=== PATIENT | male | born 1995 | race Caucasian/White ===

== ENCOUNTER → 2018-12-11 | Outpatient (REF) | payer OTHER ==
[2018-12-11 16:39] LABS: HEMOGLOBIN 16.5 g/dl (13.5-17.5); MEAN CORPUSCULAR HEMOGLOBIN 30.6 pg (27.0-33.0); MEAN CORPUSCULAR HGB CONC 35.9 g/dl (32.0-36.5); MEAN CORPUSCULAR VOLUME 85.3 fl (80.0-96.0); PLATELET COUNT, AUTOMATED 359 10^3/uL (150-450); RED BLOOD COUNT 5.39 10^6/uL (4.30-6.10); WHITE BLOOD COUNT 8.6 10^3/uL (4.0-10.0)
[2018-12-11 16:51] LABS: ALBUMIN 4.1 GM/DL (3.2-5.2); ALT/SGPT 20 U/L (12-78); BILIRUBIN,TOTAL 0.6 MG/DL (0.2-1.0); BLOOD UREA NITROGEN 15 MG/DL (7-18); CALCIUM LEVEL 8.9 MG/DL (8.5-10.1); CARBON DIOXIDE LEVEL 27 MEQ/L (21-32); CHLORIDE LEVEL 105 MEQ/L (98-107); CHOLESTEROL LEVEL 134 MG/DL (<200); CREATININE FOR GFR 0.86 MG/DL (0.70-1.30); GLOMERULAR FILTRATION RATE > 60.0 (>60); GLUCOSE, FASTING 79 MG/DL (70-100); HDL CHOLESTEROL 50 MG/DL (>40); LDL CHOLESTEROL 72 MG/DL (<100); NON-HDL-C 84 MG/DL; POTASSIUM SERUM 4.1 MEQ/L (3.5-5.1); SODIUM LEVEL 141 MEQ/L (136-145); TOTAL PROTEIN 8.1 GM/DL (6.4-8.2); TRIGLYCERIDES LEVEL 62 MG/DL (<150)
== END ==
LOC: M SFHCCLAY 11:07
PROVIDERS: ATTEND Nurse Practitioner Family
DX: J45.909 Unspecified asthma, uncomplicated (principal); F41.9 Anxiety disorder, unspecified; Z13.6 Encounter for screening for cardiovascular disorders; Z13.21 Encounter for screening for nutritional disorder

== ENCOUNTER → 2019-03-04 | Outpatient (REF) | payer OTHER ==
[2019-03-04 17:11] LABS: FREE THYROXINE INDEX 3.1 % (1.4-3.8); THYROID STIMULATING HORMONE 4.35 uIU/ML (0.358-3.740); THYROXINE (T4) 9.9 UG/DL (4.5-12.0); TOTAL 25(OH) VITAMIN D 15.8 NG/ML (30.0-100.0)
== END ==
LOC: M SFHCCLAY 11:04
PROVIDERS: ATTEND Nurse Practitioner Family
DX: R79.89 Other specified abnormal findings of blood chemistry (principal); E55.9 Vitamin D deficiency, unspecified

== ENCOUNTER → 2019-09-17 | Outpatient (REF) | payer OTHER ==
[2019-09-17 16:40] LABS: THYROID STIMULATING HORMONE 4.28 uIU/ML (0.358-3.740); TOTAL 25(OH) VITAMIN D 21.7 NG/ML (30.0-100.0)
== END ==
LOC: M SFHCCLAY 12:32
PROVIDERS: ATTEND Nurse Practitioner Family
DX: E03.9 Hypothyroidism, unspecified (principal); E55.9 Vitamin D deficiency, unspecified

== ENCOUNTER 2020-11-10 13:24 | Inpatient (IN) | payer OTHER ==
[~2020-11-10] VITALS: Ht 177.8 cm; Wt 112.2 kg
[2020-11-10] MEDS ORDERED: AZIT-12 PO (13:42)
[2020-11-10] MEDS ORDERED: VENTAER INH (13:42)
[2020-11-10] MEDS ORDERED: COMBIVENT RESPIMAT 100-20MCG INHALER 4GM INH ONE (14:00)
[2020-11-10] MEDS ORDERED: methylPREDNISolone 125MG 2ML VIAL IV ONE (14:00)
--- NOTE | 2020-11-10 14:29 | REP ---
INDICATION: DYSPNEA/COUGH. COMPARISON: None. TECHNIQUE: Single AP view of the chest performed portably with the patient upright. FINDINGS: There are patchy bibasilar infiltrates, worse on the left. No pleural effusions. Cardiac size is normal. The dena, mediastinum, and skeletal structures are unremarkable. IMPRESSION: Patchy bibasilar infiltrates, worse on the left. <Electronically signed by Asad Reyes > 11/10/20 [id number]
[2020-11-10 15:03] VITALS: O2SAT 94
[2020-11-10 15:12] LABS: HEMATOCRIT 48.8 % (42.0-52.0); HEMOGLOBIN 16.4 g/dl (13.5-17.5); MEAN CORPUSCULAR HEMOGLOBIN 28.9 pg (27.0-33.0); MEAN CORPUSCULAR HGB CONC 33.6 g/dl (32.0-36.5); MEAN CORPUSCULAR VOLUME 86.1 fl (80.0-96.0); PLATELET COUNT, AUTOMATED 383 10^3/uL (150-450); RED BLOOD COUNT 5.67 10^6/uL (4.30-6.10)
[2020-11-10 15:26] LABS: INR 1.15
[2020-11-10 15:27] LABS: D-DIMER QUANT 3025.53 ng/ml (<500)
[2020-11-10 15:38] LABS: ALBUMIN 3.7 GM/DL (3.2-5.2); ALT/SGPT 48 U/L (12-78); BILIRUBIN,DIRECT 0.4 MG/DL (0.0-0.2); BLOOD UREA NITROGEN 15 MG/DL (7-18); CALCIUM LEVEL 9.2 MG/DL (8.5-10.1); CARBON DIOXIDE LEVEL 26 MEQ/L (21-32); CHLORIDE LEVEL 106 MEQ/L (98-107); CK-MB VALUE MASS < 1.0 NG/ML (<3.6); CPK CREATINE PHOSPHOKINASE 741 U/L (39-308); CREATININE FOR GFR 0.91 MG/DL (0.70-1.30); GLOMERULAR FILTRATION RATE > 60.0 (>60); GLUCOSE, FASTING 94 MG/DL (70-100); MB/CK RELATIVE INDEX 0.13 (< OR =4); NT-PRO BNP 8 PG/ML (<125); POTASSIUM SERUM 4.3 MEQ/L (3.5-5.1); SODIUM LEVEL 139 MEQ/L (136-145); TOTAL PROTEIN 8.4 GM/DL (6.4-8.2); TROPONIN I < 0.02 NG/ML (< 0.10)
[2020-11-10] MEDS ORDERED: ISOVUE-370 76% 100ML VIAL As Ordered ONE (15:55)
[2020-11-10 16:13] LABS: MONOCYTES 6 % (0-5)
[2020-11-10 16:15] LABS: NEUTROPHILS 72 % (28-66)
[2020-11-10 16:17] LABS: ATYPICAL LYMPH 5 % (0-5); LYMPHOCYTES 11 % (16-44)
[2020-11-10 16:18] LABS: PLATELET ESTIMATE NORMAL (NORMAL)
[2020-11-10 16:24] LABS: RSV AMPLIFICATION NEGATIVE (NEGATIVE)
--- NOTE | 2020-11-10 17:05 | REP ---
INDICATION: SOB, chest pain. COMPARISON: Comparison is made with today's chest x-ray.. TECHNIQUE: Contrast dose: 75 ML of Isovue [address] technique: Helical scanning is acquired and overlapping 1.5 mm and contiguous 3 mm axial images are reformatted. In addition, maximum intensity projection and multiplanar re-formation images are generated in sagittal and coronal imaging projections. FINDINGS: There is good opacification in the pulmonary arterial tree. There is no evidence of vessel cut off or filling defect to suggest pulmonary embolus. Homogeneous opacity is seen in the thoracic aorta. There is no evidence of aneurysm or dissection. Lung window settings demonstrate demonstrate multifocal predominantly peripheral pattern of patchy airspace consolidation bilaterally. This is worse in the left lower lobe and left upper lobe but also present in the right middle lobe lower lobe and upper lobe. Commonly reported imaging features of COVID 19 pneumonia are present. Other processes such as influenza pneumonia, drug toxicity, and connective tissue disease can produce a similar pattern. In the upper abdomen, normal adrenal glands are observed. The visualized upper abdominal structures are unremarkable. IMPRESSION: Patchy bilateral peripheral airspace consolidation suggestive of viral pneumonia. Commonly reported imaging features of COVID-19 pneumonia are present. There is no CT evidence of pulmonary embolus.. <Electronically signed by Trung Rubio > 11/10/20 [id number]
[2020-11-10] MEDS ORDERED: IPRATROPIUM 0.5MG/ALBUTEROL 2.5MG INH SOL UD 3ML (DUONEB) NEB ONE (17:30)
[2020-11-10] MEDS ORDERED: LevoFLOXacin IV 750 MG in IV 1 EA IV ONE (17:30)
[2020-11-10] MEDS ORDERED: ALBUTEROL SULFATE 2.5 MG/0.5 ML INH NEB SOLN NEB PRN (17:45)
--- NOTE | 2020-11-10 19:18 | HPEPDOC ---
General Date of Admission Nov 10, 2020 at 17:31 Date of Service: Nov 10, 2020 Chief Complaint The patient is a 25-year-old male admitted with a reason for visit of Pneumonia. Source: Patient History of Present Illness Mr. Almanza is a 25 year old male with asthma here with worsening dyspnea and asthma. For the holidays, he has been staying with a roommate. On 10/31/2020 (ay), he and his roommate has not been feeling well. His roommate and himself were both tested on 11/01/2020. His roommate was positive and he was negative. He self quarantine. As the week progressed, he became more symptomatic with dyspnea. He went to the ER at [facility] on Sunday (11/05/2020) and was tested negative, but imaging demonstrated pneumonia. He was given Azithromycin and was self quarantined again. Today, he would finish his azithromycin. He tried to walk to the bathroom, but felt too weak and collapsed to the ground. He called EMS and was brought here. He was tested again for COVID and influenza and both tests are negative again. CTA was negative for PE but demonstrated patchy bilateral peripheral airspace consolidation suggestive of viral pneumonia. He was too dyspneic with activity and ED called for admission. Patient denied any fever, but has dyspnea worse with sitting up and better when lying down. Dyspnea also worse with activity. He has a sharp chest pain with activity as well. He had an episode of diarrhea today, but not watery. Home Medications Scheduled Azithromycin (Azithromycin) 250 Mg Tablet, 250 MG PO DAILY, (Reported) FOR 5 DAYS Scheduled PRN Albuterol Sulfate (Ventolin Hfa) 18 Gm Hfa.aer.ad, 2 PUFFS INH QID PRN for SOB/WHEEZING, (Reported) Allergies Coded Allergies: No Known Allergies (Unverified , 11/10/20) Past Medical History Medical History 1. Asthma Surgical History Denies any surgical history Family History Denies any known past medical history in parents Social History * Smoker: former Smoker (Quit 10 years ago, smoked for 3 months) Alcohol: Denies Drugs: denies Recent Travel/Sick Contacts: Reports: Recent sick contacts (Roommate who is COVID positive. Patient tested COVID negative x2) A-FIB/CHADSVASC A-FIB History Current/History of A-Fib/PAF?: No Review of Systems Constitutional: Denies: Chills, Fever Eyes: Denies: Vision change ENT: Denies: Sore Throat Skin: Reports: Rash (Intermittent on hands) Pulmonary: Reports: Dyspnea (Worse with activity and sitting up), Cough (Dry) Cardiovascular: Reports: Chest Pain (Sharp, worse with activity) Gastrointestinal: Reports: Diarrhea (Not watery, started today); Denies: Nausea, Abdominal Pain Genitourinary: Denies: Dysuria Hematologic: Denies: Bruising Musculoskeletal: Reports: Back Pain (From lying on back) Neurological: Reports: Weakness (Generalized) Physical Examination General Exam: Positive: Alert, Cooperative Eye Exam: Positive: EOMI; Negative: Sclera icteric ENT Exam: Positive: Atraumatic Neck Exam: Positive: Supple Chest Exam: Positive: Diminished Heart Exam: Positive: Rate Normal, Regular Rhythm Abdomen Exam: Positive: Normal bowel sounds, Soft; Negative: Tenderness Extremity Exam: Negative: Edema Neuro Exam: Positive: Cranial Nerves 3-12 NL Psych Exam: Positive: Mental status NL, Mood NL Vital Signs Vital Signs Date Time Temp Pulse Resp B/P (MAP) Pulse Ox O2 Delivery O2 Flow Rate FiO2 11/10/20 16:24 99 18 95 Room Air 11/10/20 15:35 120/92 (101) 11/10/20 15:11 94 11/10/20 13:25 97.0 Laboratory Data Labs 24H Laboratory Tests 2 11/10/20 14:40: Neutrophils (%) (Auto) , Nucleated Red Blood Cells % (auto) 0.0, Neutrophils 72H, Band Neutrophils 6, Lymphocytes (Manual) 11L, Monocytes (Manual) 6H, Atypical Lymphocytes 5, Platelet Estimate NORMAL, Prothrombin Time 15.0H, Prothromb Time International Ratio 1.15, D-Dimer, Quantitative 3025.53H, Anion Gap 7L, Glomerular Filtration Rate > 60.0, Calcium Level 9.2, Total Bilirubin 1.0, Direct Bilirubin 0.4H, Aspartate Amino Transf (AST/SGOT) 51H, Alanine Aminotransferase (ALT/SGPT) 48, Alkaline Phosphatase 71, Total Creatine Kinase 741H, Creatine Kinase MB < 1.0, Creatine Kinase MB Relative Index 0.13, Troponin I < 0.02, NC-Llp-L-Type Natriuretic Peptide 8, Total Protein 8.4H, Albumin 3.7, Albumin/Globulin Ratio 0.8, Thyroid Stimulating Hormone (TSH) 2.110 11/10/20 15:21: Coronavirus (COVID-19)(PCR) NEGATIVE, Influenza Type A (RT-PCR) NEGATIVE, Influenza Type B (RT-PCR) NEGATIVE, Respiratory Syncytial Virus (PCR) NEGATIVE 11/10/20 18:06: CBC/BMP Laboratory Tests 11/10/20 14:40 Microbiology Microbiology 11/10/20 Blood Culture, Received Pending 11/10/20 Blood Culture, Received Pending Assessment/Plan Mr. Almanza is a 25 year old male with asthma here with worsening dyspnea and asthma and found to have patchy bilateral peripheral airspace consolidation suggestive of viral pneumonia. His exertional dyspnea has impaired his ability to function or ambulate. He had failed outpatient azithromycin, will switch to Levofloxacin IV. Although he tested COVID negative with the PCR, will try again with the respiratory panel since he has exposure and imaging suggestive of COVID pneumonia. Plan / VTE VTE Prophylaxis Ordered?: Yes Plan Plan 1. Pneumonia -Imaging suggestive of viral pneumonia. Commonly reported imaging features of COVID-19 pneumonia are present -Roommate had tested COVID positive -Patient tested COVID negative on 11/01/2020 and today (11/10/2020) -Failed outpatient azithromycin -Will try testing again with respiratory panel instead. -Start IV levofloxacin -Check procalcitonin and inflammatory markers 2. Asthma -Albuterol nebulizers PRN 3. Generalized weakness -Dyspnea limits activity -PT for oxygen ambulation 4. DVT ppx -Lovenox YULI HELLER DO Nov 10, 2020 19:18
[2020-11-10 22:10] VITALS: BP 150/86
[2020-11-11] MEDS ORDERED: ALBUTEROL 90 MCG/ACT 8GM HFA INHALER INH PRN (03:00)
[2020-11-11 06:00] VITALS: BP 134/90
[2020-11-11] MEDS: SYMBICORT 160/4.5MCG INHALER 6GM INH SCH ×2 (06:21→19:42)
[2020-11-11 08:42] LABS: HEMATOCRIT 45.4 % (42.0-52.0); HEMOGLOBIN 16.1 g/dl (13.5-17.5); MEAN CORPUSCULAR HEMOGLOBIN 30.3 pg (27.0-33.0); MEAN CORPUSCULAR HGB CONC 35.5 g/dl (32.0-36.5); MEAN CORPUSCULAR VOLUME 85.5 fl (80.0-96.0); PLATELET COUNT, AUTOMATED 415 10^3/uL (150-450); RED BLOOD COUNT 5.31 10^6/uL (4.30-6.10); WHITE BLOOD COUNT 4.2 10^3/uL (4.0-10.0)
[2020-11-11] MEDS ORDERED: INFLUENZA QUADRIVALENT PF VACCINE 0.5ML SYRINGE IM ONE (09:00)
[2020-11-11] MEDS ORDERED: [UNRECOGNIZED DRUG - OTHER] IM ONE (09:00)
[2020-11-11 09:14] LABS: BLOOD UREA NITROGEN 18 MG/DL (7-18); C REACTIVE PROTEIN QUANTITATIV 3.03 MG/DL (0.00-0.30); CALCIUM LEVEL 8.9 MG/DL (8.5-10.1); CARBON DIOXIDE LEVEL 22 MEQ/L (21-32); CHLORIDE LEVEL 106 MEQ/L (98-107); CREATININE FOR GFR 0.79 MG/DL (0.70-1.30); FERRITIN 1093 NG/ML (26-388); GLOMERULAR FILTRATION RATE > 60.0 (>60); GLUCOSE, FASTING 142 MG/DL (70-100); LDH LACTATE DEHYDROGENASE 405 U/L (87-241); POTASSIUM SERUM 4.2 MEQ/L (3.5-5.1); SODIUM LEVEL 139 MEQ/L (136-145)
[2020-11-11] MEDS: LACTOBACILLUS ACIDOPHILUS CAP (BACID) PO SCH (10:32)
[2020-11-11] MEDS: ENOXAPARIN 40MG/0.4ML SYRINGE (J1650 PER 10MG) SC SCH (10:33)
--- NOTE | 2020-11-11 13:24 | ECGEPIP ---
[facility] - ED Test Date: 2020-11-10 Pat Name: ELOY NDIAYE Department: Room: - Gender: Male Field Installer: : 1995 Requested By: ESCOBAR Manley Order Number: [id number] Reading MD: Ronnell Garcia Measurements Intervals Ashley Rate: 93 P: 20 VT: 170 QRS: 28 QRSD: 101 T: 16 QT: 362 QTc: 451 Interpretive Statements SINUS RHYTHM MODERATE INTRAVENTRICULAR CONDUCTION DELAY NO PRIORS FOR COMPARISON Electronically Signed on 11-11-2020 13:24:08 EST by Ronnell Garcia
[2020-11-11 14:00] VITALS: BP 128/77
[2020-11-11] MEDS: guaiFENesin ER 600 MG TAB PO SCH ×2 (14:08→22:17)
[2020-11-11] MEDS: ACETAMINOPHEN TAB 650MG DOSE (2X325MG) PO PRN (14:08)
[2020-11-11] MEDS: NS 1,000 ML IV SCH (14:09)
[2020-11-11] MEDS: SIMETHICONE 80 MG CHEW TAB PO SCH ×2 (17:26→22:17)
[2020-11-11] MEDS: LevoFLOXacin IV 750 MG in IV 1 EA IV SCH (17:27)
[2020-11-11] MEDS: BENZONATATE 100 MG CAP PO SCH ×2 (17:27→22:17)
--- NOTE | 2020-11-11 19:24 | IPNPDOC ---
Subjective Date Seen The patient was seen on 11/11/20. Subjective Chief Complaint/HPI Mr. Almanza is a 25 year old male with asthma here with worsening dyspnea and asthma found to have left sided pneumonia. Overnight, he required 2L of nasal canula. This morning, denies abdominal pain or dysuria. Still having dyspnea and dry cough. Spoke with pulmonology about CT chest. Appears to be more of mucus plugging vs bacterial pneumonia. Agree with Levofloxacin. Recommended PEP Objective Physical Examination General Exam: Positive: Alert, Cooperative Eye Exam: Positive: EOMI; Negative: Sclera icteric ENT Exam: Positive: Atraumatic Neck Exam: Positive: Supple Chest Exam: Positive: Diminished Heart Exam: Positive: Rate Normal, Regular Rhythm Abdomen Exam: Positive: Normal bowel sounds, Soft; Negative: Tenderness Extremity Exam: Negative: Edema Neuro Exam: Positive: Cranial Nerves 3-12 NL Psych Exam: Positive: Mental status NL, Mood NL Assessment /Plan Assessment Mr. Almanza is a 25 year old male with asthma here with worsening dyspnea and asthma found to have left sided pneumonia. He had failed outpatient azithromycin, will switch to Levofloxacin IV. He was tested for COVID about 1 week prior and 2x during this admission. He is COVID negative. Imaging is suggestive of mucus plugging vs bacterial pneumonia. Will continue with Levoqui n. Start PEP and acapella. Plan/VTE VTE Prophylaxis Ordered?: Yes Plan 1. Bacterial Pneumonia -Patient tested COVID negative on 11/01/2020 and 11/10/2020 -Failed outpatient azithromycin -Continue IV levofloxacin -Added Benzonatate and Guaifenesin 2. Asthma -PRN duonebs -Symbicort 3. Generalized weakness -Dyspnea limits activity -PT for oxygen ambulation 4. DVT ppx -Lovenox VS, I&O, 24H, Fishbone Vital Signs/I&O Vital Signs Date Time Temp Pulse Resp B/P (MAP) Pulse Ox O2 Delivery O2 Flow Rate FiO2 11/11/20 14:00 97.8 101 18 128/77 (94) 94 Nasal Cannula 2.0 11/10/20 15:11 94 I&O- Last 24 Hours up to 6 AM 11/11/20 06:00 Intake Total 1680 ml Balance 1680 ml Laboratory Data 24H LABS Laboratory Tests 2 11/11/20 08:06: Nucleated Red Blood Cells % (auto) 0.0, D-Dimer, Quantitative > 4000H, Anion Gap 11, Glomerular Filtration Rate > 60.0, Calcium Level 8.9, Ferritin 1093H, Lactate Dehydrogenase 405H, C-Reactive Protein, Quantitative 3.03H CBC/BMP Laboratory Tests 11/11/20 08:06 Microbiology Microbiology 11/10/20 Respiratory Virus Panel (PCR) (IZA) - Final, Complete 11/10/20 Blood Culture - Preliminary, Resulted No growth after 24 hours . All specim... 11/10/20 Blood Culture - Preliminary, Resulted No growth after 24 hours . All specim... YULI HELLER DO Nov 11, 2020 19:24
[2020-11-11 20:00] VITALS: BP 126/77
[2020-11-11] MEDS: traZODone 25MG PER 1/2 TABLET PO SCH (22:17)
[2020-11-12] MEDS: NS 1,000 ML IV SCH (03:18)
[2020-11-12 06:04] VITALS: BP 121/75
[2020-11-12 06:46] LABS: HEMATOCRIT 41.3 % (42.0-52.0); HEMOGLOBIN 14.4 g/dl (13.5-17.5); MEAN CORPUSCULAR HEMOGLOBIN 30.3 pg (27.0-33.0); MEAN CORPUSCULAR HGB CONC 34.9 g/dl (32.0-36.5); MEAN CORPUSCULAR VOLUME 86.9 fl (80.0-96.0); PLATELET COUNT, AUTOMATED 405 10^3/uL (150-450); RED BLOOD COUNT 4.75 10^6/uL (4.30-6.10); WHITE BLOOD COUNT 8.1 10^3/uL (4.0-10.0)
[2020-11-12 07:14] LABS: BLOOD UREA NITROGEN 19 MG/DL (7-18); CALCIUM LEVEL 7.8 MG/DL (8.5-10.1); CARBON DIOXIDE LEVEL 25 MEQ/L (21-32); CHLORIDE LEVEL 110 MEQ/L (98-107); CREATININE FOR GFR 0.75 MG/DL (0.70-1.30); GLOMERULAR FILTRATION RATE > 60.0 (>60); GLUCOSE, FASTING 137 MG/DL (70-100); POTASSIUM SERUM 4.3 MEQ/L (3.5-5.1); SODIUM LEVEL 142 MEQ/L (136-145)
[2020-11-12] MEDS: SYMBICORT 160/4.5MCG INHALER 6GM INH SCH ×2 (08:24→21:00)
[2020-11-12] MEDS: LACTOBACILLUS ACIDOPHILUS CAP (BACID) PO SCH (08:25)
[2020-11-12] MEDS: guaiFENesin ER 600 MG TAB PO SCH ×2 (08:25→20:44)
[2020-11-12] MEDS: BENZONATATE 100 MG CAP PO SCH ×3 (08:25→20:44)
[2020-11-12] MEDS: ENOXAPARIN 40MG/0.4ML SYRINGE (J1650 PER 10MG) SC SCH (08:27)
[2020-11-12] MEDS: SIMETHICONE 80 MG CHEW TAB PO SCH ×3 (08:27→20:44)
[2020-11-12 14:00] VITALS: BP 115/64
[2020-11-12] MEDS: LevoFLOXacin IV 750 MG in IV 1 EA IV SCH (17:56)
[2020-11-12] MEDS: ACETAMINOPHEN TAB 650MG DOSE (2X325MG) PO PRN (17:56)
[2020-11-12 20:00] VITALS: BP 115/81
--- NOTE | 2020-11-12 20:21 | IPNPDOC ---
Subjective Date Seen The patient was seen on 11/12/20. Subjective Chief Complaint/HPI Mr. Almanza is a 25 year old male with asthma here with worsening dyspnea and asthma found to have left sided pneumonia. Still requiring 2L of nasal cannula. Otherwise reports dyspnea and cough. Reports sharp chest pain with coughing located center upper chest. Objective Physical Examination General Exam: Positive: Alert, Cooperative Eye Exam: Positive: EOMI; Negative: Sclera icteric ENT Exam: Positive: Atraumatic Neck Exam: Positive: Supple Chest Exam: Positive: Diminished Heart Exam: Positive: Rate Normal, Regular Rhythm Abdomen Exam: Positive: Normal bowel sounds, Soft; Negative: Tenderness Extremity Exam: Negative: Edema Neuro Exam: Positive: Cranial Nerves 3-12 NL Psych Exam: Positive: Mental status NL, Mood NL Assessment /Plan Assessment Mr. Almanza is a 25 year old male with asthma here with worsening dyspnea and asthma found to have left sided pneumonia. He had failed outpatient azithromycin, will switch to Levofloxacin IV. He was tested for COVID about 1 week prior and 2x during this admission. He is COVID negative. Imaging is sugges tive of mucus plugging vs bacterial pneumonia. Will continue with Levoquin, PEP, and acapella. Plan/VTE VTE Prophylaxis Ordered?: Yes Plan 1. Bacterial Pneumonia -Patient tested COVID negative on 11/01/2020 and 11/10/2020 -Failed outpatient azithromycin -Continue IV levofloxacin -Continue Benzonatate and Guaifenesin 2. Asthma -PRN duonebs -Symbicort 3. Generalized weakness -Dyspnea limits activity -PT for oxygen ambulation 4. DVT ppx -Lovenox VS, I&O, 24H, Fishbone Vital Signs/I&O Vital Signs Date Time Temp Pulse Resp B/P (MAP) Pulse Ox O2 Delivery O2 Flow Rate FiO2 11/12/20 14:00 97.8 111 18 115/64 (81) 89 Nasal Cannula 2.0 11/10/20 15:11 94 I&O- Last 24 Hours up to 6 AM 11/12/20 06:00 Intake Total 300 ml Output Total 0 ml Balance 300 ml Laboratory Data 24H LABS Laboratory Tests 2 11/12/20 05:45: Nucleated Red Blood Cells % (auto) 0.0, Anion Gap 7L, Glomerular Filtration Rate > 60.0, Calcium Level 7.8L 11/12/20 08:05: Urine Color ISMAEL, Urine Appearance CLEAR, Urine pH 6.0, Urine Specific Elkins 1.038, Urine Protein 2+H, Urine Glucose (UA) NEGATIVE, Urine Ketones TRACEH, Urine Blood NEGATIVE, Urine Nitrite NEGATIVE, Urine Bilirubin NEGATIVE, Urine Urobilinogen 4.0H, Urine Leukocyte Esterase NEGATIVE, Urine WBC (Auto) 0, Urine RBC (Auto) 0, Urine Hyaline Casts (Auto) 0, Urine Bacteria (Auto) NEGATIVE, Urine Squamous Epithelial Cells 0, Urine Mucus (Auto) SMALL, Urine Sperm (Auto) CBC/BMP Laboratory Tests 11/12/20 05:45 Microbiology Microbiology 11/10/20 Respiratory Virus Panel (PCR) (IZA) - Final, Complete 11/10/20 Blood Culture - Preliminary, Resulted No Growth after 48 hours. All Specime... 11/10/20 Blood Culture - Preliminary, Resulted No Growth after 48 hours. All Specime... YULI HELLER DO Nov 12, 2020 20:21
[2020-11-12] MEDS: traZODone 25MG PER 1/2 TABLET PO SCH (20:44)
[2020-11-13 06:06] VITALS: BP 122/81
[2020-11-13] MEDS: SYMBICORT 160/4.5MCG INHALER 6GM INH SCH ×2 (07:16→18:04)
[2020-11-13 07:39] LABS: HEMATOCRIT 41.4 % (42.0-52.0); HEMOGLOBIN 14.1 g/dl (13.5-17.5); MEAN CORPUSCULAR HEMOGLOBIN 29.8 pg (27.0-33.0); MEAN CORPUSCULAR HGB CONC 34.1 g/dl (32.0-36.5); MEAN CORPUSCULAR VOLUME 87.5 fl (80.0-96.0); PLATELET COUNT, AUTOMATED 396 10^3/uL (150-450); RED BLOOD COUNT 4.73 10^6/uL (4.30-6.10); WHITE BLOOD COUNT 8.8 10^3/uL (4.0-10.0)
[2020-11-13 08:02] LABS: BLOOD UREA NITROGEN 15 MG/DL (7-18); CALCIUM LEVEL 8.5 MG/DL (8.5-10.1); CARBON DIOXIDE LEVEL 25 MEQ/L (21-32); CHLORIDE LEVEL 110 MEQ/L (98-107); CREATININE FOR GFR 0.71 MG/DL (0.70-1.30); GLOMERULAR FILTRATION RATE > 60.0 (>60); GLUCOSE, FASTING 86 MG/DL (70-100); POTASSIUM SERUM 4.3 MEQ/L (3.5-5.1); SODIUM LEVEL 142 MEQ/L (136-145)
[2020-11-13] MEDS: guaiFENesin ER 600 MG TAB PO SCH ×2 (09:00→20:57)
[2020-11-13] MEDS: SIMETHICONE 80 MG CHEW TAB PO SCH ×3 (09:00→21:00)
[2020-11-13] MEDS: BENZONATATE 100 MG CAP PO SCH ×3 (09:04→21:00)
[2020-11-13] MEDS: ENOXAPARIN 40MG/0.4ML SYRINGE (J1650 PER 10MG) SC SCH (09:05)
[2020-11-13] MEDS: LACTOBACILLUS ACIDOPHILUS CAP (BACID) PO SCH (09:05)
--- NOTE | 2020-11-13 13:56 | IPNPDOC ---
Subjective Date Seen The patient was seen on 11/13/20. Subjective Chief Complaint/HPI Mr. Almanza is a 25 year old male with asthma here with worsening dyspnea and asthma found to have left sided pneumonia. He is very dyspnea with exertion and cough is persistent. Still requiring 2L of NC. Objective Physical Examination General Exam: Positive: Alert, Cooperative Eye Exam: Positive: EOMI; Negative: Sclera icteric ENT Exam: Positive: Atraumatic Neck Exam: Positive: Supple Chest Exam: Positive: Diminished Heart Exam: Positive: Rate Normal, Regular Rhythm Abdomen Exam: Positive: Normal bowel sounds, Soft; Negative: Tenderness Extremity Exam: Negative: Edema Neuro Exam: Positive: Cranial Nerves 3-12 NL Psych Exam: Positive: Mental status NL, Mood NL Assessment /Plan Assessment Mr. Almanza is a 25 year old male with asthma here with worsening dyspnea and asthma found to have left sided pneumonia. He had failed outpatient azithromycin, will switch to Levofloxacin IV. He was tested for COVID about 1 week prior and 2x during this admission. He is COVID negative. Imaging is suggestive of mucus plugging vs bacterial pneumonia. Will continue with Levoquin, PEP, and acapella. Add on chest PT today Plan/VTE VTE Prophylaxis Ordered?: Yes Plan 1. Bacterial Pneumonia -Patient tested COVID negative on 11/01/2020 and 11/10/2020 -Failed outpatient azithromycin -Continue IV levofloxacin -Continue Benzonatate and Guaifenesin -Add on chest PT today 2. Asthma -PRN duonebs -Symbicort 3. Generalized weakness -Dyspnea limits activity -PT for oxygen ambulation 4. DVT ppx -Lovenox VS, I&O, 24H, Fishbone Vital Signs/I&O Vital Signs Date Time Temp Pulse Resp B/P (MAP) Pulse Ox O2 Delivery O2 Flow Rate FiO2 11/13/20 08:20 2.0 11/13/20 06:06 98.6 83 20 122/81 (95) 96 Room Air 11/10/20 15:11 94 I&O- Last 24 Hours up to 6 AM 11/13/20 06:00 Intake Total 2580 ml Output Total 800 ml Balance 1780 ml Laboratory Data 24H LABS Laboratory Tests 2 11/13/20 06:57: Nucleated Red Blood Cells % (auto) 0.0, Anion Gap 7L, Glomerular Filtration Rate > 60.0, Calcium Level 8.5 CBC/BMP Laboratory Tests 12/19/20 06:57 Microbiology Microbiology 11/10/20 Respiratory Virus Panel (PCR) (IZA) - Final, Complete 11/10/20 Blood Culture - Preliminary, Resulted No Growth after 48 hours. All Specime... 11/10/20 Blood Culture - Preliminary, Resulted No Growth after 48 hours. All Specime... YULI HELLER DO Nov 13, 2020 13:56
[2020-11-13 14:00] VITALS: BP 126/84
[2020-11-13] MEDS: LevoFLOXacin IV 750 MG in IV 1 EA IV SCH (18:06)
[2020-11-13 20:02] VITALS: BP 123/84
[2020-11-13] MEDS: ACETAMINOPHEN TAB 650MG DOSE (2X325MG) PO PRN (20:57)
[2020-11-13] MEDS: traZODone 25MG PER 1/2 TABLET PO SCH (20:58)
[2020-11-14 05:37] LABS: HEMATOCRIT 41.5 % (42.0-52.0); HEMOGLOBIN 14.1 g/dl (13.5-17.5); MEAN CORPUSCULAR HEMOGLOBIN 29.4 pg (27.0-33.0); MEAN CORPUSCULAR VOLUME 86.6 fl (80.0-96.0); PLATELET COUNT, AUTOMATED 418 10^3/uL (150-450); RED BLOOD COUNT 4.79 10^6/uL (4.30-6.10); WHITE BLOOD COUNT 10.2 10^3/uL (4.0-10.0)
[2020-11-14 06:00] LABS: BLOOD UREA NITROGEN 13 MG/DL (7-18); C REACTIVE PROTEIN QUANTITATIV 1.97 MG/DL (0.00-0.30); CALCIUM LEVEL 8.4 MG/DL (8.5-10.1); CARBON DIOXIDE LEVEL 25 MEQ/L (21-32); CHLORIDE LEVEL 111 MEQ/L (98-107); CREATININE FOR GFR 0.71 MG/DL (0.70-1.30); GLOMERULAR FILTRATION RATE > 60.0 (>60); GLUCOSE, FASTING 95 MG/DL (70-100); LDH LACTATE DEHYDROGENASE 262 U/L (87-241); POTASSIUM SERUM 4.4 MEQ/L (3.5-5.1); SODIUM LEVEL 142 MEQ/L (136-145)
[2020-11-14 06:07] VITALS: BP 126/87
[2020-11-14] MEDS: SYMBICORT 160/4.5MCG INHALER 6GM INH SCH (07:47)
[2020-11-14] MEDS: SIMETHICONE 80 MG CHEW TAB PO SCH (08:20)
[2020-11-14] MEDS: BENZONATATE 100 MG CAP PO SCH (08:21)
[2020-11-14] MEDS: LACTOBACILLUS ACIDOPHILUS CAP (BACID) PO SCH (09:51)
[2020-11-14] MEDS: ENOXAPARIN 40MG/0.4ML SYRINGE (J1650 PER 10MG) SC SCH (09:51)
[2020-11-14] MEDS: guaiFENesin ER 600 MG TAB PO SCH (09:51)
[2020-11-14] MEDS ORDERED: LEVO750T13 PO (10:40)
[2020-11-14] MEDS ORDERED: BENZ-18 PO (10:40)
[2020-11-14] MEDS ORDERED: MUCI600T31 PO (10:40)
[2020-11-14] MEDS ORDERED: VENTAER INH (10:40)
--- NOTE | 2020-11-14 14:59 | DS.PDOC ---
Discharge Summary General Date of Admission Nov 10, 2020 at 17:31 Date of Discharge Nov 14, 2020 Attending Physician: YULI HELLER DO Discharge Summary PROCEDURES PERFORMED DURING STAY: None. ADMITTING DIAGNOSES: 1. Bacterial pneumonia 2. Asthma 3. Generalized weakness DISCHARGE DIAGNOSES: 1. Bacterial pneumonia 2. Asthma 3. Generalized weakness COMPLICATIONS/CHIEF COMPLAINT: Pneumonia. HISTORY OF PRESENT ILLNESS: Mr. Almanza is a 25 year old male with asthma here with worsening dyspnea and asthma. For the holidays, he has been staying with a roommate. On 10/31/2020, he and his roommate has not been feeling well. His roommate and himself were both tested on 11/01/2020. His roommate was positive and he was negative. He self quarantine. As the week progressed, he became more symptomatic with dyspnea. He went to the ER at [place] on Sunday (11/05/2020) and was tested negative, but imaging demonstrated pneumonia. He was given Azithromycin and was self quarantined again. Today, he would finish his azithromycin. He tried to walk to the bathroom, but felt too weak and collapsed to the ground. He called EMS and was brought here. He was tested again for COVID and influenza and both tests are negative again. CTA was negative for PE but demonstrated patchy bilateral peripheral airspace consolidation suggestive of viral pneumonia. He was too dyspneic with activity and ED called for admission. Patient denied any fever, but has dyspnea worse with sitting up and better when lying down. Dyspnea also worse with activity. He has a sharp chest pain with ac tivity as well. He had an episode of diarrhea today, but not watery. Patient was tested for the third time for COVID which was also negative. HOSPITAL COURSE: The night of admission, he started to require 2L of NC. The next morning, touched base with pulmonary about imaging. Appears to be more of m ucus plugging vs bacterial pneumonia. Agreed with levofloxacin and recommended PEP/Acapella. Patient did well and improved throughout his stay. No fevers during stay. Otherwise today, he was weaned off of oxygen. He was walked and did not desaturate below 88%, so he did not qualify for home oxygen. He felt better and felt ready for home. He was subsequently discharged home. DISCHARGE MEDICATIONS: Please see below. ALLERGIES: Please see below. PHYSICAL EXAMINATION ON DISCHARGE: VITAL SIGNS: Please see below. GENERAL: Comfortable, in no apparent distress. HEENT: Head normocephalic/atraumatic, EOMI, sclera clear. NECK: Supple, no JVD. RESPIRATORY: Coarse breath sounds. CARDIOVASCULAR: Regular rate and rhythm. ABDOMEN: Soft, nontender, no guarding or rebound tenderness. Normal bowel sound s. MUSCLE SKELETAL: Muscle strength 5/5 in all extremities. NEUROLOGICAL: CN 312 grossly intact, no focal deficits noted. PSYCHOLOGICAL: Normal mood and affect LABORATORY DATA: Please see below. IMAGING: CT angio of chest Patchy bilateral peripheral airspace consolidation suggestive of viral pneumonia. Commonly reported imaging features of COVID-19 pneumonia are present. There is no CT evidence of pulmonary embolus.. PROGNOSIS: Good ACTIVITY: As tolerated. DIET: As tolerated. DISCHARGE PLAN: Home DISPOSITION: 01 Home, Self-Care. DISCHARGE INSTRUCTIONS: 1. Follow up with your PCP within five days 2. Continue taking antibiotic to completion 3. Take Tessalon Perles and Mucinex for your symptoms DISCHARGE CONDITION: Stable Total time spent on discharge planning, discharge summary, and medication reconciliation: 45 minutes Vital Signs/I&Os Vital Signs Date Time Temp Pulse Resp B/P (MAP) Pulse Ox O2 Delivery O2 Flow Rate FiO2 11/14/20 11:34 92 Room Air 11/14/20 09:00 2.0 11/14/20 06:07 99.6 110 20 126/87 (100) 11/10/20 15:11 94 I&O- Last 24 Hours up to 6 AM 11/14/20 06:00 Intake Total 1120 ml Output Total 0 ml Balance 1120 ml Laboratory Data Labs 24H Laboratory Tests 2 11/14/20 05:24: Nucleated Red Blood Cells % (auto) 0.0, D-Dimer, Quantitative > 4000H, Anion Gap 6L, Glomerular Filtration Rate > 60.0, Calcium Level 8.4L, Lactate Dehydrogenase 262H, C-Reactive Protein, Quantitative 1.97H CBC/BMP Laboratory Tests 11/14/20 05:24 Microbiology Microbiology 11/10/20 Respiratory Virus Panel (PCR) (IZA) - Final, Complete 11/10/20 Blood Culture - Preliminary, Resulted No Growth after 72 hours. All specime... 11/10/20 Blood Culture - Preliminary, Resulted No Growth after 72 hours. All specime... Discharge Medications Scheduled Benzonatate (Benzonatate) 100 Mg Capsule, 200 MG PO TID Guaifenesin (Mucinex) 600 Mg Tab.er.12h, 600 MG PO BID Levofloxacin (Levofloxacin) 750 Mg Tablet, 750 MG PO DAILY Scheduled PRN Albuterol Sulfate (Ventolin Hfa) 18 Gm Hfa.aer.ad, 2 PUFFS INH QID PRN for SOB/WHEEZING, (Reported) Albuterol Sulfate (Ventolin Hfa) 18 Gm Hfa.aer.ad, 2 PUFF INH Q4HP PRN for SHORTNESS OF BREATH Allergies Coded Allergies: No Known Allergies (Unverified , 11/10/20) YULI HELLER DO Nov 14, 2020 14:59
== END 2020-11-14 11:58 | disposition home or self-care (01) | DRG 195 ==
LOC: M ED 15:16 → M ED INP 17:31 → ENRESERV 19:44 → M MS5PR 22:07
PROVIDERS: ADMIT Internal Medicine; ATTEND Internal Medicine
DX: J15.9 Unspecified bacterial pneumonia (principal); J45.909 Unspecified asthma, uncomplicated

== ENCOUNTER 2020-11-16 09:29 | Inpatient (IN) | payer OTHER ==
[~2020-11-16] VITALS: Ht 177.8 cm; Wt 109.0 kg
[~2020-11-16 09:29] MED LIST: AZIT-12 PO; BENZ-18 PO; LEVO750T13 PO; MUCI600T31 PO; VENTAER INH
[2020-11-16] MEDS ORDERED: KETOROLAC 30 MG/ML 1ML VIAL IV ONE (10:15)
[2020-11-16 10:30] LABS: BASO % 0.2 % (0.0-1.0); EOS % 0.2 % (0.0-3.0); HEMATOCRIT 43.5 % (42.0-52.0); HEMOGLOBIN 14.8 g/dl (13.5-17.5); LYMPH # 1.2 10^3/uL (1.5-5.0); LYMPH % 6.1 % (24.0-44.0); MEAN CORPUSCULAR HEMOGLOBIN 29.3 pg (27.0-33.0); MEAN CORPUSCULAR VOLUME 86.1 fl (80.0-96.0); MONO # 2.3 10^3/uL (0.0-0.8); MONO % 11.6 % (0.0-5.0); PLATELET COUNT, AUTOMATED 511 10^3/uL (150-450); RED BLOOD COUNT 5.05 10^6/uL (4.30-6.10); WHITE BLOOD COUNT 19.8 10^3/uL (4.0-10.0)
[2020-11-16 10:36] LABS: VENOUS BASE EXCESS -2.3 (-2.0-2.0); VENOUS HCO3 21.1 MEQ/L (23.0-27.0); VENOUS O2 SATURATION 96.7 % (60.0-80.0); VENOUS PARTIAL PRESSURE CO2 32.8 mmHg (38.0-50.0); VENOUS PARTIAL PRESSURE O2 83.9 mmHg (30.0-50.0); VENOUS PH 7.426 UNITS (7.330-7.430); VENOUS STANDARD HCO3 22.6 MEQ/L; VENOUS TOTAL CO2 22.1 MEQ/L (24.0-28.0)
[2020-11-16 10:43] LABS: INR 1.16; PROTHROMBIN TIME 15.1 SECONDS (12.5-14.3)
[2020-11-16 11:02] LABS: ALBUMIN 3.4 GM/DL (3.2-5.2); ALT/SGPT 109 U/L (12-78); BILIRUBIN,DIRECT 0.4 MG/DL (0.0-0.2); BILIRUBIN,TOTAL 1.1 MG/DL (0.2-1.0); BLOOD UREA NITROGEN 12 MG/DL (7-18); CALCIUM LEVEL 8.9 MG/DL (8.5-10.1); CARBON DIOXIDE LEVEL 23 MEQ/L (21-32); CHLORIDE LEVEL 106 MEQ/L (98-107); CPK CREATINE PHOSPHOKINASE 88 U/L (39-308); CREATININE FOR GFR 0.78 MG/DL (0.70-1.30); GLOMERULAR FILTRATION RATE > 60.0 (>60); GLUCOSE, FASTING 111 MG/DL (70-100); POTASSIUM SERUM 4.7 MEQ/L (3.5-5.1); SODIUM LEVEL 136 MEQ/L (136-145); THYROXINE (T4) 13.6 UG/DL (4.5-12.0); TOTAL PROTEIN 8.1 GM/DL (6.4-8.2); TROPONIN I < 0.02 NG/ML (< 0.10)
[2020-11-16 11:03] LABS: D-DIMER QUANT > 4000.0 ng/ml (<500)
[2020-11-16 11:07] LABS: CK-MB VALUE MASS < 1.0 NG/ML (<3.6); MB/CK RELATIVE INDEX 1.14 (< OR =4); NT-PRO BNP 31 PG/ML (<125)
[2020-11-16] MEDS ORDERED: ACET1TAB55 PO (11:30)
[2020-11-16] MEDS ORDERED: methylPREDNISolone 125MG 2ML VIAL IV ONE (11:45)
[2020-11-16] MEDS ORDERED: NS 500 ML IV ONE (12:00)
[2020-11-16] MEDS ORDERED: ISOVUE-370 76% 100ML VIAL As Ordered ONE (12:03)
--- NOTE | 2020-11-16 12:36 | REP ---
INDICATION: shortness of breath, difficulty breathing COMPARISON: 11/10/2020 TECHNIQUE: PA and lateral. FINDINGS: Bilateral perihilar and lower lobe infiltrates compatible with multifocal pneumonia (left greater than right) and small right pleural effusion again noted. Subtle new area of opacity in the right upper lung zone is now suggested as well. No pneumothorax. IMPRESSION: Multifocal opacities and atelectasis consistent with pneumonia. Follow-up to resolution recommended. <Electronically signed by Ad De Jesus > 11/16/20 [id number]
--- NOTE | 2020-11-16 12:47 | REP ---
INDICATION: hemoptysis/sob, ro PE COMPARISON: None. TECHNIQUE: Axial contrast enhanced images from the thoracic inlet to the upper abdomen using pulmonary embolus technique with multiplanar re-formations. 75 ml Isovue 370 intravenous contrast material administered without complication. This CT examination was performed using the following dose reduction techniques: Automated exposure control, adjustment of mA and/or kv according to the patient's size, and use of iterative reconstruction technique. FINDINGS: Current examination demonstrates significant bilateral pulmonary emboli primarily involving 2nd and 3rd order bilateral lower lobe branches (right greater than left) as well as 3rd order branches to the lingula. Patchy peripheral areas of consolidation and airspace disease primarily noted in the posterior lower lobes and along the periphery of the left mid to upper lung zone appear somewhat progressive and findings are consistent with changes related to Covid-19 disease. No effusion. No pneumothorax. Tracheobronchial tree is patent. Thoracic aorta and heart appear normal. Mild reactive mediastinal lymph nodes noted. IMPRESSION: 1. Significant primarily bilateral lower lobe pulmonary emboli (right greater than left) 2. Progressive patchy areas of peripheral consolidation somewhat increased from prior examination and consistent with changes related to COVID-19 disease. <Electronically signed by Ad De Jesus > 11/16/20 [id number]
[2020-11-16] MEDS ORDERED: ACETAMINOPHEN TAB 650MG DOSE (2X325MG) PO PRN (14:00)
[2020-11-16] MEDS ORDERED: ALBUTEROL 90 MCG/ACT 8GM HFA INHALER INH PRN (14:00)
--- NOTE | 2020-11-16 14:18 | HPEPDOC ---
General Date of Admission 11/16/20 Date of Service: Nov 16, 2020 Chief Complaint The patient is a 25-year-old male admitted with a reason for visit of SOB. Source: Patient Exam Limitations: No limitations Timing/Duration: Day(s) Severity: Moderate Associated Symptoms: Shortness of breath History of Present Illness Patient is 25 years old male with past medical history of asthma presented to the hospital with increased shortness of breath. Patient was recently discharged from the hospital on 11/10/20, he has been treated for bilateral pneumonia and discharged on Levaquin. After discharge patient has taken Levaquin. A few days ago patient started feeling increased shortness of breath with mild to moderate right chest pain. In ER patient was found to have leukocytosis of 19.8, ta chycardia, tachypnea. CTA showed Significant primarily bilateral lower lobe pulmonary emboli (right greater than left) Progressive patchy areas of peripheral consolidation somewhat increased from prior examination and consistent with changes related to COVID-19 disease. Patient was tested multiple times for COVID 19, results were negative. Home Medications Scheduled Benzonatate (Benzonatate) 100 Mg Capsule, 200 MG PO TID Guaifenesin (Mucinex) 600 Mg Tab.er.12h, 600 MG PO BID Levofloxacin (Levofloxacin) 750 Mg Tablet, 750 MG PO DAILY Scheduled PRN Acetaminophen (Acetaminophen) 325 Mg Tablet, 650 MG PO Q6H PRN for PAIN, (Reported) Albuterol Sulfate (Ventolin Hfa) 18 Gm Hfa.aer.ad, 2 PUFFS INH QID PRN for SOB/WHEEZING, (Reported) Allergies Coded Allergies: No Known Allergies (Unverified , 11/10/20) Past Medical History Medical History Asthma Family History Sister has Goodpasture's syndrome Social History * Smoker: Denies Alcohol: Denies Drugs: denies A-FIB/CHADSVASC A-FIB History Current/History of A-Fib/PAF?: No Current PO Anticoag Therapy: No Review of Systems Constitutional: Reports: Malaise; Denies: Chills, Fever Eyes: Denies: Pain ENT: Denies: Head Aches Skin: Denies: Rash, Lesions Pulmonary: Reports: Dyspnea, Pleuritic Chest Pain Cardiovascular: Denies: Palpitations Gastrointestinal: Denies: Nausea, Vomiting Genitourinary: Denies: Dysuria Hematologic: Denies: Bruising Endocrine: Denies: Polydipsia Musculoskeletal: Denies: Neck Pain, Back Pain Neurological: Denies: Weakness Psych: Reports: Mood Normal Physical Examination General Exam: Positive: Alert, Cooperative Eye Exam: Positive: PERRLA ENT Exam: Positive: Atraumatic Neck Exam: Positive: Supple; Negative: JVD Chest Exam: Positive: Diminished Heart Exam: Positive: Tachycardic Telemetry: Positive: Sinus Abdomen Exam: Positive: Normal bowel sounds Extremity Exam: Negative: Clubbing, Cyanosis Skin Exam: Positive: Nl turgor and temperature Neuro Exam: Positive: Normal Gait, Strength at 5/5 X4 ext Psych Exam: Positive: Mental status NL Vital Signs Vital Signs Date Time Temp Pulse Resp B/P (MAP) Pulse Ox O2 Delivery O2 Flow Rate FiO2 11/16/20 12:23 107 20 120/67 (84) 96 11/16/20 09:52 Room Air 11/16/20 09:31 96.6 Laboratory Data Labs 24H Laboratory Tests 2 11/16/20 10:13: Immature Granulocyte % (Auto) 0.9, Neutrophils (%) (Auto) 81.0H, Lymphocytes (%) (Auto) 6.1L, Monocytes (%) (Auto) 11.6H, Eosinophils (%) (Auto) 0.2, Basophils (%) (Auto) 0.2, Neutrophils # (Auto) 16.0H, Lymphocytes # (Auto) 1.2L, Monocytes # (Auto) 2.3H, Eosinophils # (Auto) 0.0, Basophils # (Auto) 0.0, Nucleated Red Blood Cells % (auto) 0.0, Prothrombin Time 15.1H, Prothromb Time International Ratio 1.16, D-Dimer, Quantitative > 4000.0H, Blood Gas Bicarbonate Standard 22.6, Venous Blood pH 7.426, Venous Blood Partial Pressure CO2 32.8L, Venous Blood Partial Pressure O2 83.9H, Venous Blood Total Carbon Dioxide 22.1L, Venous Blood HCO3 21.1L, Venous Blood Oxygen Saturation 96.7H, Venous Blood Base Excess -2.3L, Anion Gap 7L, Glomerular Filtration Rate > 60.0, Lactic Acid Level 0.9, Calcium Level 8.9, Total Bilirubin 1.1H, Direct Bilirubin 0.4H, Aspartate Amino Transf (AST/SGOT) 50H, Alanine Aminotransferase (ALT/SGPT) 109H, Alkaline Phosphatase 99, Total Creatine Kinase 88, Creatine Kinase MB < 1.0, Creatine Kinase MB Relative Index 1.14, Troponin I < 0.02, EX-Eih-Z-Type Natriuretic Peptide 31, Total Protein 8.1, Albumin 3.4, Albumin/Globulin Ratio 0.7, Thyroid Stimulating Hormone (TSH) 2.170, Thyroxine (T4) 13.6H CBC/BMP Laboratory Tests 11/16/20 10:13 Microbiology Microbiology 11/16/20 Respiratory Virus Panel (PCR) ([facility]) - Final, Complete 11/16/20 Blood Culture, Received Pending 11/16/20 Blood Culture, Received Pending Assessment/Plan Patient is 25 years old male with past medical history of asthma presented to the hospital with increased shortness of breath. Patient was recently discharged from the hospital on 11/10/20, he has been treated for bilateral pneumonia and discharged on Levaquin. After discharge patient has taken Levaquin. A few days ago patient started feeling increased shortness of breath with mild to moderate right chest pain. In ER patient was found to have leukocytosis of 19.8, tachycardia, tachypnea. CTA showed Significant primarily bilateral lower lobe pulmonary emboli (right greater than left) Progressive patchy areas of peripheral consolidation somewhat increased from prior examination and consistent with changes related to COVID-19 disease. Patient was tested multiple times for COVID 19, results were negative. Problems (1) Sepsis Status: Acute Problem Text: Patient developed leukocytosis of 19.5, tachypnea, tachycardia Patient recently treated with broad-spectrum antibiotics and has Progressive patchy areas of peripheral consolidation somewhat increased from prior examina tion I will start vancomycin IV and Zosyn IV We'll check procalcitonin, MRSA screen IV fluid Steroids Pt will be placed to airborne precaution due to possibility of COVID 19 despite of negative PCR (2) Multifocal pneumonia Status: Acute Problem Text: See above We will check urine for Legionella, IgM test for mycoplasma (3) Pulmonary embolism Status: Acute Problem Text: patient developed pulmonary emboli, he has never had history of blood clots. Blood clots can be provoked by inflammation due to pneumonia will check coagulation panel Xarelto 20 mg Plan / VTE VTE Prophylaxis Ordered?: Yes REGINA PAINTING DO Nov 16, 2020 14:18
[2020-11-16] MEDS ORDERED: RIVAROXABAN 20 MG TAB (XARELTO) PO SCH (15:00)
[2020-11-16 16:44] LABS: HIV 1&2 SCREEN CENTAUR NEGATIVE (NEGATIVE)
[2020-11-16] MEDS: predniSONE 20 MG TAB PO SCH (16:45)
[2020-11-16] MEDS: RIVAROXABAN 15 MG TAB (XARELTO) PO SCH ×2 (16:46→22:37)
[2020-11-16] MEDS: PIPERACILLIN/TAZOBACTAM SOD 4.5 GM in D5W MINI-BAG PLUS 50 ML IV SCH ×2 (16:46→22:38)
[2020-11-16] MEDS: VANCOMYCIN HCL 1,000 MG, VIAL MATE ADAPTER 1 EACH in D5W 250 ML IV SCH (17:58)
[2020-11-16] MEDS: NS 1,000 ML IV SCH (22:38)
--- NOTE | 2020-11-16 22:57 | ECGEPIP ---
[facility] - ED Test Date: 2020-11-16 Pat Name: ELOY NDIAYE Department: Room: - Gender: Male [employer]r: redd : 1995 Requested By: KIM Jha PA-C Order Number: [id number] Reading MD: Ronnell Garcia Measurements Intervals [place] Rate: 101 P: 31 VA: 152 QRS: 57 QRSD: 91 T: 42 QT: 339 QTc: 441 Interpretive Statements SINUS TACHYCARDIA RATE CHANGE COMPARED TO 11/10/20 Electronically Signed on 11-16-2020 22:57:07 EST by Ronnell Garcia
[2020-11-17] MEDS: PIPERACILLIN/TAZOBACTAM SOD 4.5 GM in D5W MINI-BAG PLUS 50 ML IV SCH ×4 (04:30→21:29)
[2020-11-17] MEDS: VANCOMYCIN HCL 1,000 MG, VIAL MATE ADAPTER 1 EACH in D5W 250 ML IV SCH (05:18)
[2020-11-17 07:47] LABS: HEMOGLOBIN 13.8 g/dl (13.5-17.5); MEAN CORPUSCULAR HEMOGLOBIN 29.1 pg (27.0-33.0); MEAN CORPUSCULAR HGB CONC 33.7 g/dl (32.0-36.5); MEAN CORPUSCULAR VOLUME 86.3 fl (80.0-96.0); PLATELET COUNT, AUTOMATED 594 10^3/uL (150-450); RED BLOOD COUNT 4.75 10^6/uL (4.30-6.10); WHITE BLOOD COUNT 20.3 10^3/uL (4.0-10.0)
[2020-11-17 08:06] LABS: ALBUMIN 2.9 GM/DL (3.2-5.2); ALT/SGPT 134 U/L (12-78); BILIRUBIN,TOTAL 0.8 MG/DL (0.2-1.0); BLOOD UREA NITROGEN 12 MG/DL (7-18); CALCIUM LEVEL 8.7 MG/DL (8.5-10.1); CARBON DIOXIDE LEVEL 24 MEQ/L (21-32); CHLORIDE LEVEL 106 MEQ/L (98-107); GLOMERULAR FILTRATION RATE > 60.0 (>60); GLUCOSE, FASTING 169 MG/DL (70-100); MAGNESIUM LEVEL 2.7 MG/DL (1.8-2.4); POTASSIUM SERUM 4.4 MEQ/L (3.5-5.1); SODIUM LEVEL 137 MEQ/L (136-145); TOTAL PROTEIN 7.5 GM/DL (6.4-8.2)
[2020-11-17] MEDS: predniSONE 20 MG TAB PO SCH (08:21)
[2020-11-17] MEDS: RIVAROXABAN 15 MG TAB (XARELTO) PO SCH ×2 (08:21→21:29)
[2020-11-17] MEDS ORDERED: VANCOMYCIN HCL 750 MG, VIAL MATE ADAPTER 1 EACH in D5W 250 ML IV SCH ×2 (10:00→11:00)
[2020-11-17 10:35] LABS: DRVV SCREEN 67.2 SEC
[2020-11-17 10:36] LABS: PTT LUPUS TYPE ANTICOAG SCREEN 1.6 (0-1.2)
[2020-11-17 10:42] LABS: DRVV CONFIRM 51.7 SEC; LUPUS CONFIRM RATIO 1.3
[2020-11-17 10:43] LABS: NORMALIZED RATIO 1.23 (0.00-1.20)
[2020-11-17] MEDS: NS 1,000 ML IV SCH ×3 (11:37→23:54)
--- NOTE | 2020-11-17 13:58 | IPNPDOC ---
Text Note Date of Service The patient was seen on 11/17/20. NOTE Subjective: No any acute events overnight. Patient stated that he feels better today Objective: GENERAL APPEARANCE: NAD HEENT: no scleral icterus, no JVD, EOMI CARDIOVASCULAR: S1S2 LUNGS: Diminished lung sounds bilaterally ABDOMEN: soft & not tender w palpitation MUSCULOSKELETAL: no cyanosis, no swelling INTEGUMENT: no generalized palor NEUROLOGICAL: cranial nerve function from 2-12 intact intact, follows commands, speech not dysarthric Assessment and plan Patient is 25 years old male with past medical history of asthma presented to the hospital with increased shortness of breath. Patient was recently discharged from the hospital on 11/10/20, he has been treated for bilateral pneumonia and discharged on Levaquin. After discharge patient has taken Levaquin. A few days ago patient started feeling increased shortness of breath with mild to moderate right chest pain. In ER patient was found to have leukocytosis of 19.8, tachycardia, tachypnea. CTA showed Significant primarily bilateral lower lobe pulmonary emboli (right greater than left) Progressive patchy areas of peripheral consolidation somewhat increased from prior examination and consistent with changes related to COVID-19 disease. Patient was tested multiple times for COVID 19, results were negative. Problems (1) Sepsis Patient developed leukocytosis of 19.5, tachypnea, tachycardia Patient recently treated with broad-spectrum antibiotics and has progressive patchy areas of peripheral consolidation somewhat increased from prior examination dc vancomycin IV, continue Zosyn IV procalcitonin negative IV fluid Steroids - airborne precaution due to possibility of COVID 19 despite of negative PCR (2) Multifocal pneumonia See above await urine for Legionella, IgM test for mycoplasma (3) Pulmonary embolism patient developed pulmonary emboli, he has never had history of blood clots. Blood clots can be provoked by inflammation due to pneumonia await coagulation panel Xarelto 20 mg VS,Fishbone, I+O VS, Fishbone, I+O Laboratory Tests 11/17/20 07:22 Vital Signs Date Time Temp Pulse Resp B/P (MAP) Pulse Ox O2 Delivery O2 Flow Rate FiO2 11/17/20 08:30 121/77 (92) 11/17/20 08:24 99 96 11/16/20 22:31 16 Room Air 11/16/20 18:05 97.7 I&O- Last 24 Hours up to 6 AM 11/17/20 06:00 Intake Total 1370 ml Balance 1370 ml REGINA PAINTING DO Nov 17, 2020 13:58
[2020-11-17 14:00] VITALS: BP 136/76
[2020-11-17 23:30] VITALS: BP 137/79
[2020-11-18] MEDS: PIPERACILLIN/TAZOBACTAM SOD 4.5 GM in D5W MINI-BAG PLUS 50 ML IV SCH ×2 (03:32→07:26)
[2020-11-18 04:00] VITALS: BP 122/72
[2020-11-18] MEDS: NS 1,000 ML IV SCH (07:26)
[2020-11-18 08:00] VITALS: BP 122/78
[2020-11-18] MEDS ORDERED: LevoFLOXacin 500 MG TABLET PO ONE (08:00)
[2020-11-18 09:16] LABS: BASO % 0.1 % (0.0-1.0); EOS % 0.1 % (0.0-3.0); HEMATOCRIT 38.6 % (42.0-52.0); HEMOGLOBIN 12.9 g/dl (13.5-17.5); LYMPH # 2.6 10^3/uL (1.5-5.0); LYMPH % 17.6 % (24.0-44.0); MEAN CORPUSCULAR HEMOGLOBIN 29.3 pg (27.0-33.0); MEAN CORPUSCULAR HGB CONC 33.4 g/dl (32.0-36.5); MEAN CORPUSCULAR VOLUME 87.7 fl (80.0-96.0); MONO # 1.8 10^3/uL (0.0-0.8); MONO % 11.8 % (0.0-5.0); NEUTROPHILS # 10.3 10^3/uL (1.5-8.5); NEUTROPHILS % 69.7 % (36.0-66.0); PLATELET COUNT, AUTOMATED 551 10^3/uL (150-450); WHITE BLOOD COUNT 14.8 10^3/uL (4.0-10.0)
[2020-11-18 09:33] LABS: ALBUMIN 2.6 GM/DL (3.2-5.2); ALT/SGPT 186 U/L (12-78); BILIRUBIN,TOTAL 0.7 MG/DL (0.2-1.0); BLOOD UREA NITROGEN 16 MG/DL (7-18); CALCIUM LEVEL 8.3 MG/DL (8.5-10.1); CARBON DIOXIDE LEVEL 24 MEQ/L (21-32); CHLORIDE LEVEL 111 MEQ/L (98-107); CREATININE FOR GFR 0.77 MG/DL (0.70-1.30); GLOMERULAR FILTRATION RATE > 60.0 (>60); GLUCOSE, FASTING 94 MG/DL (70-100); MAGNESIUM LEVEL 2.4 MG/DL (1.8-2.4); POTASSIUM SERUM 4.3 MEQ/L (3.5-5.1); SODIUM LEVEL 142 MEQ/L (136-145); TOTAL PROTEIN 6.5 GM/DL (6.4-8.2)
[2020-11-18 09:50] LABS: ERYTHROCYTE SEDIMENTATION RATE 62 mm/hr (0-15)
[2020-11-18] MEDS: RIVAROXABAN 15 MG TAB (XARELTO) PO SCH (09:56)
[2020-11-18] MEDS: predniSONE 20 MG TAB PO SCH (09:56)
[2020-11-18] MEDS ORDERED: AUGM875T28 PO (10:46)
[2020-11-18] MEDS ORDERED: XARE15TA PO (10:46)
[2020-11-18] MEDS ORDERED: DOXY-350 PO (10:46)
--- NOTE | 2020-11-18 15:47 | DS.PDOC ---
Discharge Summary General Date of Admission Nov 16, 2020 at 13:59 Date of Discharge 11/18/20 Discharge Summary PROCEDURES PERFORMED DURING STAY: [None]. ADMITTING DIAGNOSES: Sepsis Multifocal pneumonia Pulmonary embolism DISCHARGE DIAGNOSES: Sepsis Multifocal pneumonia Pulmonary embolism COMPLICATIONS/CHIEF COMPLAINT: Multifocal Pneumonia/Pulmonary Embolism. HISTORY OF PRESENT ILLNESS: Patient is 25 years old male with past medical history of asthma presented to the hospital with increased shortness of breath. Patient was recently discharged from the hospital on 11/10/20, he has been treated for bilateral pneumonia and discharged on Levaquin. After discharge patient has taken Levaquin. A few days ago patient started feeling increased shortness of breath with mild to moderate right chest pain. In ER patient was found to have leukocytosis of 19.8, tachycardia, tachypnea. CTA showed Significant primarily bilateral lower lobe pulmonary emboli (right greater than left) Progressive patchy areas of peripheral consolidation somewhat increased from prior examination and consistent with changes related to COVID-19 disease. Patient was tested multiple times for COVID 19, results were negative. HOSPITAL COURSE: During hospital stay following issue addressed (1) Sepsis Patient developed leukocytosis of 19.5, tachypnea, tachycardia Patient recently treated with broad-spectrum antibiotics and has progressive patchy areas of peripheral consolidation somewhat increased from prior examination Patient received treatment with vancomycin IV, Zosyn IV procalcitonin negative IV fluid Received treatment with Steroids (2) Multifocal pneumonia See above await urine for Legionella, IgM test for mycoplasma (3) Pulmonary embolism patient developed pulmonary emboli, he has never had history of blood clots. Bl ood clots can be provoked by inflammation due to pneumonia await coagulation panel Xarelto 15 mg twice a day for 21 days DISCHARGE MEDICATIONS: Please see below. ALLERGIES: Please see below. PHYSICAL EXAMINATION ON DISCHARGE: VITAL SIGNS: Please see below. GENERAL APPEARANCE: NAD HEENT: no scleral icterus, no JVD, EOMI CARDIOVASCULAR: S1S2 LUNGS: Diminished lung sounds bilaterally ABDOMEN: soft & not tender w palpitation MUSCULOSKELETAL: no cyanosis, no swelling INTEGUMENT: no generalized palor NEUROLOGICAL: cranial nerve function from 2-12 intact intact, follows commands, speech not dysarthric LABORATORY DATA: Please see below. IMAGING: [facility] NAME: ELOY NDIAYE DATE OF : 1995 AGE: 25 SEX: M REPORT #: [id number] ROOM: ED TECHNOLOGIST: DIOGENES DOCTOR: KIM SOFIA PA-C Ordered for Date&Time: 11/16/20 1149 cc: [~ rep ct ivnm] Service Date&Time: 11/16/20 1228 This report is in Signed status. If this report is in a DRAFT status it has not yet been reviewed by the radiologist for accuracy. Thank you for having your radiology procedures performed at [facility] RADIOLOGY REPORT Date&Time printed: [~ rep prt dt last] [~ rep prt tm last] Page 2 of 2 [place] [address] RADIOLOGY REPORT This report is in Signed status. If this report is in a DRAFT status it has not yet been reviewed by the radiologist for accuracy. Thank you for having your radiology procedures performed at [facility] RADIOLOGY REPORT Date&Time printed: [~ rep prt dt last] [~ rep prt tm last] Page 1 of 1 None. TECHNIQUE: Axial contrast enhanced images from the thoracic inlet to the upper abdomen using pulmonary embolus technique with multiplanar re-formations. 75 ml Isovue 370 intravenous contrast material administered without complication. This CT examination was performed using the following dose reduction techniques: Automated exposure control, adjustment of mA and/or kv according to the patient's size, and use of iterative reconstruction technique. FINDINGS: Current examination demonstrates significant bilateral pulmonary emboli primarily involving 2nd and 3rd order bilateral lower lobe branches (right greater than left) as well as 3rd order branches to the lingula. Patchy peripheral areas of consolidation and airspace disease primarily noted in the posterior lower lobes and along the periphery of the left mid to upper lung zone appear somewhat progressive and findings are consistent with changes related to Covid-19 disease. No effusion. No pneumothorax. Tracheobronchial tree is patent. Thoracic aorta and heart appear normal. Mild reactive mediastinal lymph nodes noted. IMPRESSION: 1. Significant primarily bilateral lower lobe pulmonary emboli (right greater than left) 2. Progressive patchy areas of peripheral consolidation somewhat increased from prior examination and consistent with changes related to COVID-19 disease. <Electronically signed by Ad De Jesus > 11/16/20 1244 DD: Ad De Jesus MD 11/16/20 1237 DT: JESSENIA 11/16/20 1244 DS: JAGUAR 11/16/20 1237 11/16/20 1237 [~ rep ct labl] PROGNOSIS: Good ACTIVITY: [As tolerated]. DIET: regular DISCHARGE PLAN: DISPOSITION: 01 Home, Self-Care. ITEMS TO FOLLOWUP ON ON OUTPATIENT: With PCP DISCHARGE CONDITION: [Stable]. TIME SPENT ON DISCHARGE: Greater than 30 minutes. Vital Signs/I&Os Vital Signs Date Time Temp Pulse Resp B/P (MAP) Pulse Ox O2 Delivery O2 Flow Rate FiO2 11/18/20 08:00 98.5 83 18 122/78 (93) 96 Room Air 11/18/20 04:00 1.0 I&O- Last 24 Hours up to 6 AM 11/18/20 06:00 Intake Total 2020 ml Output Total 1750 ml Balance 270 ml Laboratory Data Labs 24H Laboratory Tests 2 11/18/20 08:51: Immature Granulocyte % (Auto) 0.7, Neutrophils (%) (Auto) 69.7H, Lymphocytes (%) (Auto) 17.6L, Monocytes (%) (Auto) 11.8H, Eosinophils (%) (Auto) 0.1, Basophils (%) (Auto) 0.1, Neutrophils # (Auto) 10.3H, Lymphocytes # (Auto) 2.6, Monocytes # (Auto) 1.8H, Eosinophils # (Auto) 0.0, Basophils # (Auto) 0.0, Nucleated Red Blood Cells % (auto) 0.0, Erythrocyte Sedimentation Rate 62H, Anion Gap 7L, Glomerular Filtration Rate > 60.0, Calcium Level 8.3L, Magnesium Level 2.4, Total Bilirubin 0.7, Aspartate Amino Transf (AST/SGOT) 95H, Alanine Aminotransferase (ALT/SGPT) 186H, Alkaline Phosphatase 104, C-Reactive Protein, Quantitative 3.50H, Total Protein 6.5, Albumin 2.6L, Albumin/Globulin Ratio 0.7, Procalcitonin 0.05, Vancomycin Level Trough 1.9L CBC/BMP Laboratory Tests 11/18/20 08:51 Microbiology Microbiology 11/16/20 Respiratory Virus Panel (PCR) ([facility]) - Final, Complete 11/16/20 Blood Culture - Preliminary, Resulted No Growth after 48 hours. All Specime... 11/16/20 Blood Culture - Preliminary, Resulted No Growth after 48 hours. All Specime... Discharge Medications Scheduled Amoxicillin/Potassium Clav (Augmentin 875-125 Tablet) 1 Each Tablet, 1 TAB PO BID Benzonatate (Benzonatate) 100 Mg Capsule, 200 MG PO TID Doxycycline Monohydrate (Doxycycline) 100 Mg Capsule, 1 CAP PO BID Guaifenesin (Mucinex) 600 Mg Tab.er.12h, 600 MG PO BID Rivaroxaban (Xarelto) 15 Mg Tablet, 15 MG PO BID Take 2 pills for next 20 days, then take 1 pill 20 mg daily for 3 months in total Scheduled PRN Acetaminophen (Acetaminophen) 325 Mg Tablet, 650 MG PO Q6H PRN for PAIN, (Reported) Albuterol Sulfate (Ventolin Hfa) 18 Gm Hfa.aer.ad, 2 PUFFS INH QID PRN for SOB/WHEEZING, (Reported) Allergies Coded Allergies: No Known Allergies (Unverified , 11/10/20) REGINA PAINTING DO Nov 18, 2020 15:47
[2020-11-19] MEDS ORDERED: LevoFLOXacin 500 MG TABLET PO SCH (06:00)
[2020-11-20 13:07] LABS: HEXAGONAL PHASE PHOSPHOLIPID 1 sec (0-11)
[2020-11-23 11:08] LABS: ANTI THROMBIN 3 ANTIGEN IMMUNO 83 % (72-124); ANTI THROMBIN 3 FUNCT ACTIVITY 134 % (75-135); ANTINUCLEAR ANTIBODIES DIRECT Negative (Negative); CARDIOLIPIN IGA ANTIBODY 12 APL U/mL (0-11); CARDIOLIPIN IGG ANTIBODY <9 GPL U/mL (0-14); CARDIOLIPIN IGM ANTIBODY 53 MPL U/mL (0-12); MYCOPLASMA PNEUMONIAE IgG 102 U/mL (0-99); MYCOPLASMA PNEUMONIAE IgM <770 U/mL (0-769); PROTEIN C FUNCTIONAL ACTIVITY 142 % (73-180); PROTEIN S FUNCTIONAL ACTIVITY 73 % (63-140)
== END 2020-11-18 12:37 | disposition home or self-care (01) | DRG 871 ==
LOC: M ED 09:29 → M ED INP 13:59 → M PCU 11-17 23:44
PROVIDERS: ADMIT Internal Medicine; ATTEND Internal Medicine
DX: A41.9 Sepsis, unspecified organism (principal); J18.9 Pneumonia, unspecified organism; I26.99 Other pulmonary embolism without acute cor pulmonale; J45.909 Unspecified asthma, uncomplicated; Z79.899 Other long term (current) drug therapy

== ENCOUNTER → 2020-11-25 | Outpatient (CLI) | payer OTHER ==
[~2020-11-25] MED LIST changes: +ACET1TAB55 PO; +AUGM875T28 PO; +DOXY-350 PO; +XARE15TA PO
--- NOTE | 2020-11-25 14:01 | REP ---
INDICATION: I26.99 COMPARISON: 11/16/2020 TECHNIQUE: PA and lateral. FINDINGS: The mediastinum and cardiac silhouette are normal. The lung andrade are clear and without acute consolidation, effusion, or pneumothorax. Previously noted infiltrates have resolved. The skeletal structures are intact and normal. IMPRESSION: No acute cardiopulmonary process. Previously noted infiltrates resolved. <Electronically signed by Ad De Jesus > 11/25/20 8509
== END ==
LOC: M CLY 13:35
PROVIDERS: ATTEND Family Medicine
DX: I26.99 Other pulmonary embolism without acute cor pulmonale (principal)

== ENCOUNTER → 2020-11-25 | Outpatient (REF) | payer OTHER ==
[2020-11-25 16:01] LABS: HEMATOCRIT 42.4 % (42.0-52.0); HEMOGLOBIN 14.1 g/dl (13.5-17.5); MEAN CORPUSCULAR HEMOGLOBIN 29.9 pg (27.0-33.0); MEAN CORPUSCULAR HGB CONC 33.3 g/dl (32.0-36.5); PLATELET COUNT, AUTOMATED 479 10^3/uL (150-450); RED BLOOD COUNT 4.71 10^6/uL (4.30-6.10); WHITE BLOOD COUNT 10.9 10^3/uL (4.0-10.0)
[2020-11-25 16:35] LABS: ALBUMIN 3.6 GM/DL (3.2-5.2); ALT/SGPT 68 U/L (12-78); BILIRUBIN,TOTAL 0.6 MG/DL (0.2-1.0); BLOOD UREA NITROGEN 14 MG/DL (7-18); CARBON DIOXIDE LEVEL 27 MEQ/L (21-32); CHLORIDE LEVEL 106 MEQ/L (98-107); CREATININE FOR GFR 0.87 MG/DL (0.70-1.30); GLOMERULAR FILTRATION RATE > 60.0 (>60); GLUCOSE, FASTING 83 MG/DL (70-100); POTASSIUM SERUM 3.9 MEQ/L (3.5-5.1); SODIUM LEVEL 140 MEQ/L (136-145); TOTAL PROTEIN 7.9 GM/DL (6.4-8.2)
== END ==
LOC: M SFHCCLAY 12:59
PROVIDERS: ATTEND Family Medicine
DX: I26.99 Other pulmonary embolism without acute cor pulmonale (principal)

== ENCOUNTER → 2024-10-31 | Outpatient (REF) | payer OTHER ==
[~2024-10-31] MED LIST changes: -DOXY-350 PO; +DOXY-440 PO; +LEVO1TAB40 PO; -LEVO750T13 PO
[2024-10-31 18:03] LABS: HEMOGLOBIN A1c 5.2 % (4.0-6.0)
[2024-10-31 18:18] LABS: ALBUMIN 4.3 G/DL (3.2-5.2); ALKALINE PHOSPHATASE 94 U/L (40-129); ALT/SGPT 21 U/L (7.0-40); AST/SGOT 24 U/L (<34); BILIRUBIN,TOTAL 0.6 MG/DL (0.3-1.2); BLOOD UREA NITROGEN 16 MG/DL (9-23); CALCIUM LEVEL 10.1 MG/DL (8.5-10.1); CARBON DIOXIDE LEVEL 28 MMOL/L (20-31); CHLORIDE LEVEL 105 MMOL/L (98-107); CHOLESTEROL LEVEL 160 MG/DL (<200); CHOLESTEROL RISK RATIO 2.75 (<5); CREATININE FOR GFR 0.78 MG/DL (0.70-1.30); GLOMERULAR FILTRATION RATE > 60.0 (>60); GLUCOSE, FASTING 74 MG/DL (60-100); HDL CHOLESTEROL 58.1 MG/DL (>40); LDL CHOLESTEROL 82.3 MG/DL (<100); NON-HDL-C 101.9 MG/DL; POTASSIUM SERUM 4.5 MMOL/L (3.5-5.1); SODIUM LEVEL 139 MMOL/L (136-145); TOTAL PROTEIN 8.5 G/DL (5.7-8.2); TRIGLYCERIDES LEVEL 98 MG/DL (<150)
[2024-10-31 18:19] LABS: THYROID STIMULATING HORMONE 5.247 uIU/ML (0.55-4.78)
[2024-10-31 18:20] LABS: TOTAL 25(OH) VITAMIN D 24.9 NG/ML (20.0-100.0)
== END ==
LOC: M LAB REF 16:37
PROVIDERS: ATTEND Physician Assistant
DX: Z11.9 Encounter for screening for infectious and parasitic diseases, unspecified (principal); E55.9 Vitamin D deficiency, unspecified; H53.121 Transient visual loss, right eye; F41.8 Other specified anxiety disorders

== ENCOUNTER → 2024-11-13 | Outpatient (CLI) | payer OTHER | LOC: M CARPUL 10:37 | PROVIDERS: ATTEND Physician Assistant | DX: J45.30 Mild persistent asthma, uncomplicated (principal) ==